=== PATIENT | female | born 2000 | race Caucasian/White ===

== ENCOUNTER 2021-05-27 09:08 | Emergency (ER) | payer SELFPAY ==
[~2021-05-27] VITALS: Ht 160 cm; Wt 97.7 kg
[2021-05-27] MEDS ORDERED: IV NORMAL SALINE 1000ML BAG 1,000 ML IV ONE (09:30)
[2021-05-27] MEDS ORDERED: levETIRAcetam 1,000 MG in IV DEXTROSE 5% 100ML 100 ML IV ONE (09:30)
[2021-05-27 09:51] LABS: BASO % 1 % (0-3); EOS # 0.1 x10^3/uL (0.0-0.7); EOS % 1 % (0-3); HEMATOCRIT 41.7 % (36.0-47.0); LYMPH % 23 % (24-48); MEAN CORPUSCULAR HEMOGLOBIN 29 pg (25-35); MEAN CORPUSCULAR HGB CONC 34 g/dL (31-37); MEAN CORPUSCULAR VOLUME 85 fL (79-100); MONO # 0.4 x10^3/uL (0.0-1.1); MONO % 5 % (0-9); NEUT # 5.9 x10^3/uL (1.8-7.7); NEUT % 70 % (31-73); PLATELET COUNT 266 x10^3/uL (140-400); RED BLOOD COUNT 4.92 x10^6/uL (3.50-5.40); RED CELL DISTRIBUTION WIDTH 13.7 % (11.5-14.5); WHITE BLOOD COUNT 8.5 x10^3/uL (4.0-11.0)
--- NOTE | 2021-05-27 09:51 | PHYS DOC ---
Past Medical History Past Surgical History: Smoking Status: Never Smoker Alcohol Use: Rarely General Adult EDM: Chief Complaint: SEIZURE HPI: HPI: Patient is a 21 year old female who presents with was at work and began feeling slightly lightheaded so she sat down to drink some water and then the next thing she knows she is waking up. She states that back in April 2021 she had another episode like this and was told she had a seizure. She never followed up with a neurologist but followed up with her primary care provider who stated that it could be anxiety and they put her on anxiety medication. She does not take any seizure medication. She does not know what kind of seizure she has or if it was a tonic-clonic seizure. She states she is just feeling very weak and tired but has no headache. She is unsure if she hit her head. She states she was sitting down when this happened. Only other history is a , depression and anxiety. She states that she was not feeling stressed and was having a quite shift. Denies headache, dizziness, lightheadedness at this time, abdominal pain, nausea, vomiting, diarrhea, loss of bowel bladder, biting her tongue, chest pain, shortness of air, numbness or tingling, focal weakness. Review of Systems: Review of Systems: Constitutional: Denies fever or chills. [] Eyes: Denies change in visual acuity. [] HENT: Denies nasal congestion or sore throat. [] Respiratory: Denies cough or shortness of breath. [] Cardiovascular: Denies chest pain or edema. [] GI: Denies abdominal pain, nausea, vomiting, bloody stools or diarrhea. [] : Denies dysuria. [] Musculoskeletal: Denies back pain or joint pain. [] Integument: Denies rash. [] Neurologic: Denies headache, focal weakness or sensory changes. + Seizure. + Lightheadedness [] Endocrine: Denies polyuria or polydipsia. [] Lymphatic: Denies swollen glands. [] Psychiatric: Denies depression or anxiety. [] Heart Score: C/O Chest Pain: No Current Medications: Current Medications Medications (Trade) Dose Ordered Sig/Lesa Start Time Stop Time Status Last Admin Dose Admin Levetiracetam 1000 mg/Dextrose 110 ml @ 440 mls/hr 1X ONCE 05/27/21 09:30 05/27/21 09:44 Sodium Chloride 1,000 ml @ 1,000 mls/hr 1X ONCE 05/27/21 09:30 05/27/21 10:29 Allergies: Allergies: Allergies Coded Allergies Type Severity Reaction Last Updated Verified No Known Drug Allergies 05/27/21 No Physical Exam: PE: Constitutional: Well developed, well nourished, no acute distress, non-toxic appearance. [] HENT: Normocephalic, atraumatic, bilateral external ears normal, oropharynx lacho st, no oral exudates, nose normal. [] Eyes: PERRLA, EOMI, conjunctiva normal, no discharge. [] Neck: Normal range of motion, no tenderness, supple, no stridor. [] Cardiovascular:Heart rate regular rhythm, no murmur [] Lungs & Thorax: Bilateral breath sounds clear to auscultation [] Abdomen: Bowel sounds normal, soft, no tenderness, no masses, no pulsatile masses. [] Skin: Warm, dry, no erythema, no rash. [] Back: No tenderness, no CVA tenderness. [] Extremities: No tenderness, no cyanosis, no clubbing, ROM intact, no edema. [] Neurologic: Alert and oriented X 3, normal motor function, normal sensory function, no focal deficits noted. [] Psychologic: Affect normal, judgement normal, mood normal. [] Normal physical exam Current Patient Data: Vital Signs: Vital Signs Date Time Temp Pulse Resp B/P (MAP) Pulse Ox O2 Delivery O2 Flow Rate FiO2 05/27/21 09:16 98.7 85 16 145/70 (95) 98 Room Air 98.7 EKG: EK and read by Dr. Gaxiola is sinus rhythm and no STEMI Radiology/Procedures: Radiology/Procedures: [] Impression: [facility] [address] [place] [address] IMAGING REPORT Signed PATIENT: JACKSON AGUILERA ACCOUNT: [id number] : 2000 LOCATION: ER AGE: 21 SEX: F EXAM STATUS: REG ER ORD. PHYSICIAN: VERA BANGURA APRN REASON: syncope PROCEDURE: PORTABLE CHEST 1V EXAM: Chest, single view. HISTORY: Syncope. COMPARISON: None. FINDINGS: A frontal view of the chest is obtained. There is no infiltrate, pleural effusion or pneumothorax. The heart is normal in size. IMPRESSION: No acute pulmonary finding. Electronically signed by: Chelle Sharp MD (05/27/2021 10:49 AM) [id number] DICTATED and SIGNED BY: CHELLE SHARP MD DATE: 05/27/21 [id number] [facility] [address] [place] [address] IMAGING REPORT Signed PATIENT: JACKSON AGUILERA ACCOUNT: [id number] : 2000 LOCATION: ER AGE: 21 SEX: F EXAM STATUS: REG ER ORD. PHYSICIAN: VERA BANGURA APRN REASON: syncope PROCEDURE: PORTABLE CHEST 1V EXAM: Chest, single view. HISTORY: Syncope. COMPARISON: None. FINDINGS: A frontal view of the chest is obtained. There is no infiltrate, pleural effusion or pneumothorax. The heart is normal in size. IMPRESSION: No acute pulmonary finding. Electronically signed by: Chelle Sharp MD (05/27/2021 10:49 AM) [id number] DICTATED and SIGNED BY: CHELLE SHARP MD DATE: 05/27/21 [id number] 0 Course & Med Decision Making: Course & Med Decision Making Pertinent Labs and Imaging studies reviewed. (See chart for details) See HPI. Alert and oriented x4. Speaks in full clear sentences. Moving all extremities equally with equal strengths. No focal weakness or facial droop. PERRLA. No vision loss. Denies blurred vision. No trauma to the head or face. She did not bite her tongue. No broken teeth or missing teeth. Patient did not urinate on herself. Denying any extremity pain. PERRLA. Skin pink warm and dry. Afebrile. Vital signs within normal limits. Does not seem postictal. CK not elevated. Blood work unremarkable. Patient remains alert and oriented and no seizure-like activity here. CT of the head and chest x-ray are negative. Patient did receive Keppra IV bolus and fluids. She is still denies any pain. I spoke to Dr. Strange who states that we should keep her on the Keppra and have her follow-up at the clinic. Patient is stable for discharge. [] Dragon Disclaimer: Dragon Disclaimer: This electronic medical record was generated, in whole or in part, using a voice recognition dictation system. NIHSS Stroke Scale NIH Stroke Scale: NIH Stroke Scale Response (Comments) Value Level of Consciousness: 0 Alert/Responsive 0 LOC Questions: 0 Answers both correctly 0 LOC Commands: 0 Performs both tasks 0 Best Gaze: 0 Normal 0 Visual: 0 No visual loss 0 Facial Palsy: 0 Normal, symmetrical 0 Motor - Left Arm 0 No drift 0 Motor - Right Arm 0 No drift 0 Motor - Left Leg 0 No drift 0 Motor: Right Leg 0 No drift 0 Limb Ataxia: 0 Absent 0 Sensory: 0 No loss 0 Best Language: 0 Normal 0 Dysathria: 0 Normal 0 Extinction and Inattention: 0 Normal 0 Total 0 Departure Departure Impression: Primary Impression: Seizure-like activity Disposition: HOME / SELF CARE / HOMELESS Condition: STABLE Referrals: TEODORO STRANGE MD Patient Instructions: Seizure, Adult Additional Instructions: Follow-up with your neurologist as soon as possible. I did speak to our neurologist Dr. Strange today and he states that you could probably get into be seen with his nurse practitioner soon. Take medication as prescribed. You can also follow-up with your primary care who may be able to get you into see a neurologist even sooner. If symptoms worsen, you begin having a severe headache, vision changes, dizziness focal weakness on one side of your body or numbness and tingling you return to the emergency room. Scripts Levetiracetam (KEPPRA) 500 Mg Tablet 1 TAB PO BID for 30 Days, #60 TAB 0 Refills Prov: VERA BANGURA APRN 05/27/21 VERA BANGURA APRN May 27, 2021 09:51
[2021-05-27 10:01] LABS: CALCIUM 8.9 mg/dL (8.5-10.1); CREATININE 0.8 mg/dL (0.6-1.0); GFR 88.9; POTASSIUM 3.6 mmol/L (3.5-5.1)
--- NOTE | 2021-05-27 10:05 | EKG ---
[facility] [address] [place] [address] Test Date: 2021-05-27 Test Time: 09:24:50 Pat Name: JACKSON AGUILERA Department: Room: Gender: F [employer]: : 2000 Requested By: VERA BANGURA Order Number: [id number] Reading MD: Measurements Intervals [place] Rate: 82 P: 55 MA: 142 QRS: 25 QRSD: 92 T: 9 QT: 338 QTc: 398 Interpretive Statements SINUS RHYTHM NO SPECIFIC ECG ABNORMALITIES RI6.01 No previous ECG available for comparison
[2021-05-27 10:07] LABS: ALBUMIN 3.9 g/dL (3.4-5.0); TOTAL BILIRUBIN 0.5 mg/dL (0.2-1.0); TOTAL PROTEIN 7.9 g/dL (6.4-8.2)
[2021-05-27 10:10] LABS: BARBITURATES NEG (NEG); BENZODIAZEPINES NEG (NEG); CANNABINOIDS NEG (NEG); COCAINE NEG (NEG); METHADONE NEG (NEG); OPIATES NEG (NEG); PHENCYCLIDINE NEG (NEG)
[2021-05-27 10:20] LABS: AMPHETAMINE/METHAMPHETAMINE NEG (NEG)
--- NOTE | 2021-05-27 10:52 | RAD ---
EXAM: Chest, single view. HISTORY: Syncope. COMPARISON: None. FINDINGS: A frontal view of the chest is obtained. There is no infiltrate, pleural effusion or pneumo thorax. The heart is normal in size. IMPRESSION: No acute pulmonary finding. Electronically signed by: Chelle Beltran MD (05/27/2021 10:49 AM) [id number]
--- NOTE | 2021-05-27 10:54 | RAD ---
EXAM: Head and cervical spine CT without contrast. HISTORY: Seizure. Syncope. TECHNIQUE: Computed tomographic images of the head and cervical spine were obtained without contrast. *One or more of the following individualized dose reduction techniques were utilized for this examina tion: 1. Automated exposure control. 2. Adjustment of the mA and/or kV according to patient size. 3. Use of iterative reconstruction technique. COMPARISON: None. FINDINGS: Head: There is no hemorrhage. There is hyperdensity associated with a prominent cortical vessel along the right cerebral convexity. The irizarry-white matter differentiation pattern is intact. There is no m ass effect or midline shift. There is no hydrocephalus. There is an incidental right jimmy bullosa a nd ethmoid sinus mucosal thickening. The mastoid air cells are clear. There is no suspicious calvaria l lesion. Cervical spine: There is no listhesis. The vertebral bodies are normal in height and the disc spaces are preserved. The facet joints are intact. There is no fracture or suspicious osseous lesion.. There is minimal left foraminal stenosis at C2-C3. The lung apices are unremarkable. IMPRESSION: No acute intracranial finding or evidence of acute cervical spine trauma. Electronically signed by: Chelle Beltran MD (05/27/2021 10:52 AM) [id number]
[2021-05-27] MEDS ORDERED: LEVE500T56 PO (11:15)
[2021-05-27 11:23] VITALS: BP 135/65
[2021-05-27 13:04] LABS: BILIRUBIN,URINE NEGATIVE (NEG); CLARITY,URINE CLEAR; COLOR,URINE YELLOW; NITRITE,URINE NEGATIVE (NEG); PROTEIN,URINE NEGATIVE (NEG-TRACE); UROBILINOGEN,URINE 0.2 mg/dL (0.2 mg/dL)
[2021-05-27 13:09] LABS: BACTERIA,URINE FEW /HPF (0-FEW)
[2021-05-27 13:10] LABS: RBC,URINE 0 /HPF (0-2)
== END 2021-05-27 11:34 | disposition home or self-care (01) ==
LOC: ER 09:08
DX: R56.9 Unspecified convulsions (principal)
CPT/HCPCS: 36415; 70450; 71045; 72125; 80053; 80307; 81001; 81025; 82550; 83735; 84484; 85025; 87086; 93005; 96365; 99285; J1953; J7030; J7060